=== PATIENT | female | born 1995 | race Two or more races ===

== ENCOUNTER 2023-04-21 12:05 | Emergency (ER) | payer MEDICAID, OTHER, SELFPAY ==
--- NOTE | ~2023-04-21 | XR_ITS ---
EXAMINATION: XR chest 2V CLINICAL INFORMATION: Chest pain COMPARISON: No prior chest x-ray available in our system for comparison at the time of this dictation. TECHNIQUE: XR chest 2V, 2 Views Lungs and Micaela: Both lungs are clear. Pleura: Normal. Costophrenic angles are sharp. No pneumothorax. Heart: The heart is normal in size. Mediastinum: The mediastinum is within normal limits.. Bones: Skeletal structures included are normal for patient's age. XR/XR chest 2V IMPRESSION: No radiographic evidence of acute cardiopulmonary disease.
--- NOTE | 2023-04-21 12:23 | ED.GENADULT ---
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 Took home COVID test which was positive. Related Data Allergies Allergy/AdvReac Type Severity Reaction Status Date / Time No Known Allergies Allergy Verified 04/21/23 12:26 Review of Systems Review of Systems: Yes all other systems are reviewed and are negative Constitutional: Constitutional: Reports no additional constitutional complaints, Denies body ache(s), Denies chills, Denies fever(s), Denies headache(s) and Denies weakness Eyes: Eyes: Reports no additional eye complaints and Denies change in vision ENT: Reports system reviewed and no additional complaints, except as documented, Denies dizziness, Denies headache(s), Reports nasal congestion, Denies nasal discharge and Denies neck pain Cardiovascular: Cardiovascular: Reports no additional cardiovascular complaints, Reports chest pain, Denies leg edema and Reports dyspnea Respiratory: Respiratory: Reports no additional respiratory complaints, Reports cough and Reports dyspnea Gastrointestinal: Gastrointestinal: Reports no additional gastrointestinal complaints, Denies abdominal pain, Denies diarrhea, Denies nausea and Denies vomiting Genitourinary: Genitourinary: Reports no additional female genitourinary complaints and Denies urinary incontinence Musculoskeletal: Musculoskeletal: Reports no additional musculoskeletal complaints, Denies back pain, Denies arthralgias, Denies joint swelling, Denies neck pain, Denies numbness and Denies tingling Integumentary/Breasts: Skin/Breast: Reports system reviewed and no additional complaints, except as docu and Denies rash Neurologic: Reports system reviewed and no additional complaints, except as documented, Denies Abnormal speech present, Denies dizziness, Denies headache(s), Denies numbness, Denies tingling and Denies weakness PMFSH Past Medical History Attestation statement: The following information was validated with the patient. Source: old records reviewed and nursing notes reviewed Medical History No known health problems Social History Social History Smoked in Last 30 Days: No Use of substances other than those prescribed or required for medical reasons: No Advance Directives: No Physical Exam ED Vital Signs: Vital Signs - 24 hr 04/21/23 12:26 04/21/23 13:23 Temperature 99.6 F Pulse Rate 109 H Respiratory Rate 18 Blood Pressure 151/76 H Pulse Oximetry 97 99 Oxygen Delivery Method Room Air Room Air BMI result Body Mass Index 30.7 Const General: cooperative, healthy appearing, comfortable and no acute distress Orientation/consciousness: patient oriented x3 Limitations: no limitations HENMT Head: Yes normal to inspection Ears: hearing grossly normal bilaterally and TM's normal bilaterally General nose exam: Normal external nose present Face and sinus: Yes normal facial exam Mouth: Normal oral and palatal mucosa present Throat: Yes posterior oropharynx normal, Yes tonsils normal and Yes uvula midline Eyes General: appearance normal, both eyes and all related structures Pupils: Equal, round and reactive pupils present Neck Neck: Yes normal visual inspection, Yes full ROM, Yes no lymphadenopathy and Yes no meningeal signs Chest Chest palpation & inspection: normal inspection of the chest Resp Effort & Inspection: normal respiratory effort Auscultation: clear to auscultation bilaterally Cardio Rate: regular rate Rhythm: regular rhythm Peripheral pulses: Peripheral pulses 2+ throughout GI Inspection: Yes normal to inspection Palpation (GI): Soft to palpation and nontender Auscultation: normal bowel sounds Back/Spine/Pelvis Thoracic/Lumbar Spine: thoracic and lumbar spine normal to inspection Skin General skin exam: no rashes or lesions noted Neuro General: patient oriented x3, no meningeal signs, no focal motor deficits and normal sensation to monofilament Cranial nerves: Yes Equal, round and reactive pupils present Cognition (Neuro): normal cognition Speech: No Abnormal speech present Gait exam (Neuro): Normal gait present Motor exam (neuro): 5/5 motor strength present throughout Extrem General: Yes normal to inspection, Yes no pedal edema and Yes no calf tenderness Course Course Course Narrative: This is an RME: Additional HPI, ROS, PE not included below will be deferred to primary provider. This is a 28-year-old female presenting to the emergency department with complaints of fever, cough, sore throat, chest pain since yesterday. She took a COVID test last night and was positive. Last dose of Tylenol was last night.She is tachycardic at 109. Tenderness to anterior chest wall. Plan: Chest x-ray, EKG, further evaluation Reevaluation(s) Reevaluation #1: COVID screen is positive. Chest x-ray shows no acute finding. EKG is nonischemic. Reviewed supportive care at home. Reviewed worrisome signs and symptoms of when to return to the emergency room. Comfortable plan for discharge home Medical Decision Making Medical Decision Making [facility] Narrative: 28-year-old female previously healthy here with complaints of cough, congestion, sore throat, subjective fevers, chest tightness, difficulty breathing since last night.? Took home COVID test which was positive.? Exam is benign. Vitals are stable. Will review strep, COVID/flu testing from triage as well as EKG and chest x-ray Differential Diagnosis Differential Diagnoses: The differential diagnosis associated with the presentation includes HPI is atypical for ACS, myocarditis, pericarditis, PE Admission/Observation Consideration of admission/observation: Escalation of care including admission/observation considered No hypoxia or tachypnea, not requiring supplemental oxygen. No need for admission Lab Data [facility] Lab Attestation statement: I reviewed the patient's lab results. COVID screen positive Labs: Lab Results 04/21/23 Range/Units 12:38 Influenza Type A (PCR) NEGATIVE (Negative) Influenza Type B (PCR) NEGATIVE (Negative) RSV RNA Qual (PCR) NEGATIVE (Negative) SARS-CoV-2 RNA (RT-PCR) POSITIVE A (Negative) Independent Interpretation I performed an independent interpretation of an: EKG and Plain X-Ray Interpretation: I independently reviewed the EKG which showsST 112, normal TX, normal QRS, normal QT Radiology Impression Discussion of test interpretation with radiology: I have reviewed the radiologist's reading. Radiologist Impression: [address] [address] XRay Report Signed Patient: Qiana Rebolledo MR#: [id number] : 1995 Acct:[id number] Age/Sex: 28 / F ADM Date: 04/21/23 Loc: .ED Attending Dr: Ordering Physician: Lis Bernstein Date of Service: 04/21/23 Procedure(s): XR chest 2V Accession Number(s): [id number] cc: Lis Bernstein; Physician,Unknown ~ EXAMINATION: XR chest 2V CLINICAL INFORMATION: Chest pain COMPARISON: No prior chest x-ray available in our system for comparison at the time of this dictation. TECHNIQUE: XR chest 2V, 2 Views Lungs and Micaela: Both lungs are clear. Pleura: Normal. Costophrenic angles are sharp. No pneumothorax. Heart: The heart is normal in size. Mediastinum: The mediastinum is within normal limits.. Bones: Skeletal structures included are normal for patient's age. XR/XR chest 2V IMPRESSION: No radiographic evidence of acute cardiopulmonary disease. Prescription Management I considered prescription management with: Antiviral and Antibiotic Discharge Plan Discharge Clinical Impression: COVID-19 Patient Disposition: Home, Self-Care Instructions: COVID-19 (Coronavirus Disease 2019) (ED) Additional Instructions: Motrin or Tylenol for pain or fever Increase fluids, rest Return for worsening symptoms Please quarantine for 5 days and mask up for additional 5 days Motrin o Tylenol para el dolor o la fiebre Aumentar l?quidos, descansar. Regresar si los s?ntomas empeoran Por favor, p?ngase en cuarentena sara 5 d?as y use mascarilla sara 5 d?as adicionales. Referrals: Physician,Unknown J [Primary Care Provider] - 1 week Print Language: Bhutanese
[2023-04-21 12:26] VITALS: BP 151/76; PULSE 109; RESP 18; TEMP 37.6; O2SAT 97; BMI 30.7
--- NOTE | 2023-04-21 12:29 | ECG_ITS ---
Test Reason : cp Blood Pressure : / mmHG Vent. Rate : 112 BPM Atrial Rate : 112 BPM P-R Int : 132 ms QRS Dur : 074 ms QT Int : 338 ms P-R-T Axes : 050 086 023 degrees QTc Int : 461 ms Sinus tachycardia RSR' or QR pattern in V1 suggests right ventricular conduction delay Nonspecific T wave abnormality Abnormal ECG No previous ECGs available Referred By: Lis Bernstein Electronically Signed By:FELICITA PIERCE MD
[2023-04-21 13:23] VITALS: O2SAT 99
[2023-04-21 13:26] VITALS: PULSE 102
[2023-04-21 13:59] LABS: Influenza A PCR NEGATIVE (Negative); Influenza B PCR NEGATIVE (Negative); Resp Syncy Virus RNA Qual PCR NEGATIVE (Negative); SARS COV2 PCR INHOUSE POSITIVE (Negative)
== END 2023-04-21 14:37 | disposition home or self-care (01) ==
PROVIDERS: Physician Assistant Medical; Emergency Provider Emergency Medicine
DX: U07.1 COVID-19 (principal)
CPT/HCPCS: 0241U; 71046; 93005; 99283; 99285

== ENCOUNTER 2023-07-03 17:33 | Emergency (ER) | payer MEDICAID, OTHER, SELFPAY ==
--- NOTE | 2023-07-03 | ECG_ITS ---
Test Reason : CP Blood Pressure : / mmHG Vent. Rate : 094 BPM Atrial Rate : 094 BPM P-R Int : 144 ms QRS Dur : 078 ms QT Int : 348 ms P-R-T Axes : 039 047 027 degrees QTc Int : 435 ms Normal sinus rhythm Normal ECG When compared with ECG of 21-APR-2023 12:32, No significant change was found Referred By: Generic ED Physician Electronically Signed By:WOJCIECH YODER MD
--- NOTE | ~2023-07-03 | XR_ITS ---
EXAMINATION: XR CHEST CLINICAL INFORMATION: Pain COMPARISON: 04/21/2023 TECHNIQUE: Frontal view of the chest was obtained. FINDINGS: The lungs are clear with no focal consolidation. No evidence of pneumothorax, pulmonary edema, or pleural effusions. The cardiomediastinal silhouette is unremarkable. No acute osseous findings. XR/XR chest 1V IMPRESSION: No acute cardiopulmonary findings.
[2023-07-03 17:49] VITALS: BP 126/79; PULSE 98; RESP 16; TEMP 36.3; O2SAT 98; BMI 27.9
[2023-07-04 00:56] VITALS: BP 120/56; PULSE 85; RESP 17; TEMP 36.8; O2SAT 99
--- NOTE | 2023-07-04 01:08 | ED.CHESTPAIN ---
HPI - Chest Pain General Chief Complaint: Chest Pain Stated Complaint: chest pain, change of meds t-1 Time Seen by Provider: 07/04/23 00:59 Source: patient Mode of arrival: ambulatory Limitations: no limitations History of Present Illness HPI narrative: 28 yo female with PMH of depression notes just recently increased her escitalopram dose from 5mg to 10mg last night and started to have L sided chest pain that hurts to move. No travel, OCPs, URI. She has not taken anything for it. It will not go away. MD complaint: chest pain Onset (ago): day(s) (24 hours ago) Timing of current episode: constant Prior episodes: No Onset: during rest Pain location: left chest Pain radiation: none and left arm Severity: moderate Quality: tightness Relieving factors: nothing Exacerbating factors: palpation and movement Context: other (states started after medication) Treatment prior to arrival: none Related Data Allergies Allergy/AdvReac Type Severity Reaction Status Date / Time No Known Allergies Allergy Verified 07/03/23 17:48 Review of Systems Review of Systems: Constitutional : No Weight loss, No Fever, No Chills ENT/Mouth : No sore throat, No Rhinorrhea Eyes: No Eye Pain, No Swelling Cardiovascular : pos Chest Pain, no SOB, no Dyspnea on Exertion, No Orthopnea, No Edema, No Palpitations Respiratory : No Cough, No Sputum Gastrointestinal : no Nausea, No Vomiting, No Diarrhea, No abdominal Pain, No Hematochezia, No Melena Genitourinary : No Dysuria, No Urinary Frequency Musculoskeletal : No joint pain, No Myalgias, No Joint Swelling Skin : No Skin Lesions, No rash Neuro : No Weakness, No Numbness, No Dizziness, No Headache Psych : No Anxiety/Panic, No Depression All other systems reviewed and are negative [facility] Past Medical History Attestation statement: The following information was validated with the patient. Source: old records reviewed Medical History No known health problems Social History Social History (Updated 07/04/23 @ 01:08 by Kristi Luna DO) Patient Tobacco Use Status: Never used Tobacco Advance Directives: No Advance Directives Information Provided: Yes Physical Exam Vital Signs: Vital Signs: Last Vital Signs Temp 98.2 F 07/04/23 00:56 Pulse 85 07/04/23 00:56 Resp 17 07/04/23 00:56 BP 120/56 L 07/04/23 00:56 Pulse Ox 99 07/04/23 00:56 O2 Del Method Room Air 07/04/23 00:56 BMI result Body Mass Index 27.9 Appearance: Alert. Oriented X3. No acute distress. Eyes: Pupils equal, round and reactive to light. ENT: Pharynx normal. Neck: Normal inspection. Neck supple. CVS: Normal heart rate and rhythm. Pulses normal. chest: ttp along L lateral chest wall reproduces pain distal arm NV intact I do not see any swelling in L hand Respiratory: No respiratory distress. Breath sounds normal. Abdomen: Soft and nontender. Skin: Skin warm and dry. Normal skin color. Normal skin turgor. Extremities: No lower extremity edema. No calf ttp Neuro: Oriented X 3. No motor deficit. No sensory deficit. Medications Administered Discontinued Medications Generic Name Dose Route Start Last Admin Trade Name Freq PRN Reason Stop Dose Admin Acetaminophen 975 mg 07/04/23 01:13 07/04/23 02:21 Acetaminophen 325 Mg Tablet PO 07/04/23 01:14 975 mg ONCE ONE Administration Medical Decision Making Medical Decision Making MDM Narrative: 28 yo female with PMH of depression here with c/o chest pain after taking 10mg of escitalopram - PERC negative, no ACS risk factors it is reproduceable, will obtain EKG, basic labs and trop x 1. Differential Diagnosis Differential Diagnoses: The differential diagnosis associated with the presentation includes chest wall pain, med reaction Admission/Observation Consideration of admission/observation: Escalation of care including admission/observation considered work up negative stable for DC Lab Data 07/04/23 01:23 Labs: Lab Results 07/04/23 Range/Units 01:23 WBC 9.5 (4.8-10.8) X10*3/uL RBC 4.36 (4.20-5.50) X10*6/uL Hgb 10.8 L (12.0-16.0) g/dl Hct 34.1 L (37.0-47.0) % MCV 78.2 L (80.0-98.0) fL MCH 24.8 L (27.0-33.0) pg MCHC 31.7 (31.0-35.0) g/dl RDW 14.9 (11.0-16.0) % Plt Count 284 (160-400) X10*3/uL MPV 9.5 (9.4-12.3) fL Absolute Nucleated RBC 0.000 (0.0-0.012) X10*3/uL Nucleated RBC % (auto) 0.0 (0.0-0.2) /100WBC Troponin I High Sens < 2.7 (<3.5-17.0) ng/L Independent Interpretation I performed an independent interpretation of an: EKG and Plain X-Ray (normal) Interpretation: Rate: 94 Rhythm: NSR [place]: normal Normal P waves. Normal SHAWN. Normal QRS complex. ST T wave : normal no REX, inverted t waves V1 and V2 qTC: 435 prior studies: no acute ischemia The study has been interpreted contemporaneously by me. . Radiology Impression Discussion of test interpretation with radiology: I have reviewed the radiologist's reading. Discharge Plan Discharge Clinical Impression: Atypical chest pain Patient Disposition: Home, Self-Care Instructions: Chest Pain (ED) Additional Instructions: EKG, chest xray and heart tests are reassuring. you were mildly anemic. please return for worsening symptoms or concerns. talk to your doctor about your medication dose do not just stop it. El electrocardiograma, la radiograf?a de t?rax y las pruebas card?acas son tranquilizadores. Estabas levemente an?casandra. Por favor regrese si sha s?ntomas o inquietudes empeoran. Hable con espinosa m?dico sobre la dosis de espinosa medicamento, no simplemente suspenda el tratamiento. Stand Alone Forms: Work/School Release Print Language: [place]
[2023-07-04 01:29] LABS: Hematocrit 34.1 % (37.0-47.0); Hemoglobin 10.8 g/dl (12.0-16.0); Mean Corpuscular HGB Conc 31.7 g/dl (31.0-35.0); Mean Corpuscular Hemoglobin 24.8 pg (27.0-33.0); Mean Corpuscular Volume 78.2 fL (80.0-98.0); Mean Platelet Volume 9.5 fL (9.4-12.3); Platelet Count 284 X10*3/uL (160-400); Red Blood Count 4.36 X10*6/uL (4.20-5.50); Red Cell Distribution Width 14.9 % (11.0-16.0); White Blood Count 9.5 X10*3/uL (4.8-10.8)
[2023-07-04 01:59] LABS: Troponin-I High Sensitivity < 2.7 ng/L (<3.5-17.0)
[2023-07-04] MEDS: Acetaminophen 325 MG TABLET 975 MG PO (02:21)
== END 2023-07-04 02:42 | disposition home or self-care (01) ==
PROVIDERS: Emergency Provider Emergency Medicine
DX: R07.89 Other chest pain (principal)
CPT/HCPCS: 36415; 71045; 84484; 85027; 93005; 99283; 99285

== ENCOUNTER → 2023-07-03 17:55 | Outpatient (BNV) | payer SELFPAY | PROVIDERS: Emergency Provider Emergency Medicine; Visit Provider Internal Medicine Cardiovascular Disease | DX: R07.9 Chest pain, unspecified (principal) | CPT/HCPCS: 93010 ==

== ENCOUNTER 2024-05-28 13:27 | Emergency (ER) | payer MEDICAID, OTHER, SELFPAY ==
--- NOTE | ~2024-05-28 | CT_ITS ---
EXAMINATION: CT ABDOMEN AND PELVIS WITHOUT CONTRAST CLINICAL INFORMATION: Abdominal pain. Blood in urine. COMPARISON: None available. TECHNIQUE: Multidetector volumetric imaging was performed from the superior aspect of the liver through the pubic symphysis. Sagittal and coronal reformatted images were obtained on the technologist's workstation. This CT examination was performed using dose optimization techniques as appropriate, variously including the following: *Automated exposure control *Adjustment of mA and/or kV according to patient size (this includes techniques or standardized protocols for targeted exams where dose is matched to indication/reason for exam; i.e. extremities or head) *Use of iterative reconstruction technique DLP: 571 mGy-cm FINDINGS: LUNG BASES: The lung bases appear clear, with no evidence of inflammation or nodules. LIVER, GALLBLADDER, AND BILIARY TREE: Fatty infiltration of liver. The liver appears unremarkable in size and shape. No focal hepatic lesion or biliary ductal dilatation is appreciated. Unremarkable appearance of the gallbladder. PANCREAS: Unremarkable SPLEEN: Unremarkable ADRENAL GLANDS: Unremarkable KIDNEYS AND URETERS: The kidneys appear unremarkable in size, shape, and attenuation. No hydronephrosis, hydroureter, or calculi seen. BLADDER: Poorly distended, therefore suboptimally evaluated. Grossly unremarkable. GASTROINTESTINAL TRACT: The small and large bowel appear unremarkable. No diverticulosis. Normal-appearing distal ileum and vermiform appendix. ABDOMINAL WALL: No significant hernia is appreciated. LYMPH NODES: No evidence of adenopathy by size criteria. VASCULAR: Unremarkable PELVIC VISCERA: IUD. Approximately 4.2 cm, smooth, round, homogeneous left ovarian structure demonstrating Hounsfield unit density of approximately 25, almost certainly benign. No further dedicated follow-up imaging as indicated. OSSEOUS STRUCTURES: Unremarkable CT/CT abdomen pelvis wo IV con IMPRESSION: No particularly suspicious radiographic finding, as above. Electronically signed by: Rk Lockwood MD 05/28/2024 03:25 PM [facility] [place]
--- NOTE | ~2024-05-28 | US_ITS ---
EXAMINATION: US PELVIS CLINICAL INFORMATION: Lower abdominal discomfort COMPARISON: CT abdomen and pelvis 05/28/2024: Approximately 4.2 cm, smooth, round, homogeneous left ovarian structure demonstrating Hounsfield unit density of approximately 25, almost certainly benign. No further dedicated follow-up imaging as indicated. TECHNIQUE: Ultrasound of the pelvis is performed using both transabdominal and transvaginal transducers along with Doppler. Transvaginal imaging is performed due to inadequate visualization transabdominally. FINDINGS: Uterus: The uterus is anteverted and measures 9.0 x 4.0 x 4.7 cm. The double wall endometrial thickness is 3 mm. A low-lying IUD is present in the lower uterine segment with its tip 4 cm below the top of the endometrial cavity. Small amount of fluid is present in the endocervix. The uterus is smooth in contour and has normal myometrial echogenicity. No visible fibroid. Adnexa: Both ovaries are visualized. There is normal color flow to the adnexa. There is no ovarian torsion. There is no pelvic ascites or fluid collection. Right ovary measures 3.0 x 1.9 x 2.2 cm for a volume of 6.6 cc There is a 1.4 cm corpus luteal cyst Left ovary measures 5.6 x 3.9 x 4.1 cm for a volume of 47 cc which includes a 4.8 x 2.9 x 3.4 cm benign simple cyst. This is the benign cyst seen on the CT scan earlier today for which no follow-up was recommended. US/US pelvic and transvaginal IMPRESSION: 1. Low-lying IUD. 2. 4.8 cm benign left ovarian cyst. No follow-up is needed. Electronically signed by: Luciano Baez MD 05/28/2024 06:29 PM [facility]
--- NOTE | ~2024-05-28 | US_ITS ---
EXAMINATION: US PELVIS CLINICAL INFORMATION: Lower abdominal discomfort COMPARISON: CT abdomen and pelvis 05/28/2024: Approximately 4.2 cm, smooth, round, homogeneous left ovarian structure demonstrating Hounsfield unit density of approximately 25, almost certainly benign. No further dedicated follow-up imaging as indicated. TECHNIQUE: Ultrasound of the pelvis is performed using both transabdominal and transvaginal transducers along with Doppler. Transvaginal imaging is performed due to inadequate visualization transabdominally. FINDINGS: Uterus: The uterus is anteverted and measures 9.0 x 4.0 x 4.7 cm. The double wall endometrial thickness is 3 mm. A low-lying IUD is present in the lower uterine segment with its tip 4 cm below the top of the endometrial cavity. Small amount of fluid is present in the endocervix. The uterus is smooth in contour and has normal myometrial echogenicity. No visible fibroid. Adnexa: Both ovaries are visualized. There is normal color flow to the adnexa. There is no ovarian torsion. There is no pelvic ascites or fluid collection. Right ovary measures 3.0 x 1.9 x 2.2 cm for a volume of 6.6 cc There is a 1.4 cm corpus luteal cyst Left ovary measures 5.6 x 3.9 x 4.1 cm for a volume of 47 cc which includes a 4.8 x 2.9 x 3.4 cm benign simple cyst. This is the benign cyst seen on the CT scan earlier today for which no follow-up was recommended. US/US pelvic ovarian doppler IMPRESSION: 1. Low-lying IUD. 2. 4.8 cm benign left ovarian cyst. No follow-up is needed. Electronically signed by: Luciano Baez MD 05/28/2024 06:29 PM [facility] [place]
[2024-05-28 13:31] VITALS: BP 124/80; PULSE 82; RESP 16; TEMP 36.4; O2SAT 99; BMI 26.9
--- NOTE | 2024-05-28 13:40 | ED_ITS ---
HPI - General Adult General Chief complaint: Urogenital-Female Stated complaint: issue with private Time Seen by Provider: 05/28/24 14:25 Source: patient Mode of arrival: ambulatory Limitations: no limitations History of Present Illness ED Provider: GEORGE Bauer HPI narrative: This is a 29-year-old female denies past medical history presenting with swollen labia reports it is swollen, itchy and bleeding, also reports she has noted some blood in her urine. This has been going on for the last few days. She reports when she pees it stings. Also reports it stings when she has a bowel movement. She reports she is sexually active and worse protection no concerns for STDs or STIs last sexually active about a week ago with protection. Patient reports her last menstrual period was about 2 weeks ago. Vague complaints of diffuse abdominal discomfort. Denies fevers, chills, nausea, vomiting, headache, vision changes, dizziness, weakness. Related Data Previous Rx's ?Medication ?Instructions ?Recorded doxycycline hyclate 100 mg capsule 100 mg PO BID 10 days #20 caps 05/28/24 metronidazole 500 mg tablet 500 mg PO BID 7 days #14 tabs 05/28/24 valacyclovir 1 gram tablet 1,000 mg PO BID 10 days #20 tabs 05/28/24 (Valtrex) Allergies Allergy/AdvReac Type Severity Reaction Status Date / Time No Known Allergies Allergy Verified 05/28/24 13:37 Review of Systems 2 Review of Systems: Yes all other systems are reviewed and are negative [facility] Past Medical History Attestation statement: The following information was validated with the patient. Source: old records reviewed and nursing notes reviewed Medical History No known health problems Social History Social History Alcohol intake: never Patient Tobacco Use Status: Never used Tobacco Advance Directives: No Advance Directives Information Provided: No Do you have a plan to hurt others: No Plan Physical Exam ED Vital Signs: Vital Signs - 24 hr 05/28/24 13:31 05/28/24 16:44 Temperature 97.6 F 97.6 F Pulse Rate 82 87 Respiratory Rate 16 15 Blood Pressure 124/80 113/64 Pulse Oximetry 99 97 Oxygen Delivery Method Room Air Room Air BMI result Body Mass Index 26.9 vss Appearance: Alert.? Oriented X3.? No acute distress.? Head: Normocephalic, atraumatic, no step-offs or deformities Eyes: Pupils equal, round and reactive to light.? Neck: Normal inspection.? Neck supple.? CVS: Normal heart rate and rhythm.? Pulses normal.? Respiratory: No respiratory distress.? Breath sounds normal.? Abdomen: Soft and mild diffuse lower abdominal discomfort Skin: Skin warm and dry.? Normal skin color.? Normal skin turgor.? Extremities: No lower extremity edema.? No calf ttp. 5/5 strength to bilateral upper and lower extremities Back: No midline tenderness, no C-spine tenderness, full range of motion, no CVA tenderness bilaterally Neuro: Oriented X 3.? No motor deficit.? No sensory deficit. CN 2-12 intact Sensitive exam: Tila THOMAS bedside erythema and edema with ulcers to the left labia. Normal right labia. No other lesions lumps or masses noted. Scant amount of dried blood noted externally and internally. Course Course Course Narrative: RmE: 29-year-old female presents to ED for vaginal bleeding, bloody urination, abdominal pain, and vaginal labia feeling swollen. Labs UA ordered. Reevaluation(s) Reevaluation #1: Although patient states she is not concerned for STDs I did have a discussion with her about prophylactic treatment for sexually transmitted infections if interested. She would like to be prophylactically treated just in case. I will treat her for herpes as well. Patient agrees to prophylactic treatment for gonorrhea, chlamydia and trichomonas. 500mg IM ceftriaxone has been given here and scripts for doxycycline 100 mg po BID X 7 days and metronidazole 500 mg po BID X 7 days have been given to the patient. Educated on safe sex practices, full pannel STD testing and speaking to? partners on possible STD. Time: 14:39 Reevaluation #2: CBC unremarkable. Chemistry no acute findings needing intervention. Patient's transaminases mildly elevated this could be her baseline unclear. On exam only mild discomfort with palpation of lower abdomen. Troponin negative. Beta hCG negative. Lipase negative. CT abdomen and pelvis, ultrasound pending. Time: 15:01 Reevaluation #3: Swabs pending Time: 15:02 Additional Reevaluation(s): 1545 Patient positive for Trichomonas negative for yeast. Herpes culture still pending. Gonorrhea and chlamydia still pending. Abdominal CT showing a 4.2 cm smooth round homogeneous left ovarian structure likely benign, further evaluation with ultrasound will be obtained. Ultrasound still pending. Once ultrasound results patient will likely be discharged home Medications Administered Discontinued Medications Generic Name Dose Route Start Last Admin Trade Name Lucien PRN Reason Stop Dose Admin Ceftriaxone Sodium 500 mg 05/28/24 14:38 05/28/24 14:53 Ceftriaxone Sodium 500 Mg Vial IM 05/28/24 14:39 500 mg ONCE ONE Administration Doxycycline Monohydrate 100 mg 05/28/24 14:38 05/28/24 14:53 Doxycycline Monohydrate 100 Mg Capsule PO 05/28/24 14:39 100 mg ONCE ONE Administration Metronidazole 500 mg 05/28/24 14:38 05/28/24 14:53 Metronidazole 500 Mg Tablet PO 05/28/24 14:39 500 mg ONCE ONE Administration Medical Decision Making Medical Decision Making [facility] Narrative: 142 29-year-old female presents with swollen labia, bleeding from itching her labia, burning on urination discomfort with bowel movements, blood in urine ongoing for the past few days worsening. No concerns for STD/STI as per patient. Unlikely that she is she tells me. Physical exam with erythema and edema with ulcers to the left labia. Normal internal exam normal right labia. No other masses, lumps or lesions noted. Scant amount of dried blood noted externally and internally. Lower abdominal discomfort History and physical exam concerning for UTI versus cystitis versus STD/STIs versus yeast infection most likely herpes. Unlikely metabolic derangements. Unlikely acute abdomen, torsion, ovarian cyst, ectopic . Plan labs, imaging, swabs. Differential Diagnosis Differential Diagnoses: The differential diagnosis associated with the presentation includes (History and physical exam concerning for UTI versus cystitis versus STD/STIs versus yeast infection most likely herpes. Unlikely metabolic derangements. Unlikely acute abdomen, torsion, ovarian cyst, ectopic .) Admission/Observation Consideration of admission/observation: Escalation of care including admission/observation considered ([email or web address] ) Lab Data [facility] Lab Attestation statement: I reviewed the patient's lab results. 05/28/24 13:54 05/28/24 13:54 Labs: Lab Results 05/28/24 Range/Units 13:54 WBC 7.9 (4.8-10.8) X10*3/uL RBC 4.49 (4.20-5.50) X10*6/uL Hgb 12.0 (12.0-16.0) g/dl Hct 36.8 L (37.0-47.0) % MCV 82.0 (80.0-98.0) fL MCH 26.7 L (27.0-33.0) pg MCHC 32.6 (31.0-35.0) g/dl RDW 14.1 (11.0-16.0) % Plt Count 282 (160-400) X10*3/uL MPV 10.2 (9.4-12.3) fL Immature Gran % (Auto) 0.1 (0.0-0.4) % Neut % (Auto) 61.3 (45-73) % Lymph % (Auto) 32.6 (20-40) % [place] % (Auto) 4.2 (2-11) % Eos % (Auto) 1.3 (0-4) % Baso % (Auto) 0.5 (0-2) % Lymph # (Auto) 2.6 (1.2-4.9) X10*3/uL [place] # (Auto) 0.3 (0.1-1.2) X10*3/uL Eos # (Auto) 0.1 (0.0-0.4) X10*3/uL Baso # (Auto) 0.0 (0.0-0.2) X10*3/uL Abs Immat Gran (auto) 0.01 (0.00-0.03) X10*3/uL Absolute Neuts (auto) 4.8 (2.0-8.3) x10*3/uL Absolute Nucleated RBC 0.000 (0.0-0.012) X10*3/uL Nucleated RBC % (auto) 0.0 (0.0-0.2) /100WBC Sodium 141 (135-145) mmol/L Potassium 3.8 (3.3-5.1) mmol/L Chloride 109 H (96-108) mmol/L Carbon Dioxide 23 (22-29) mmol/L Anion Gap 13 (12-20) BUN 9 (9-16) mg/dL Creatinine 0.64 (0.5-1.4) mg/dL Estim Creat Clear Calc 128.8 Estimated GFR > 60 Random Glucose 99 (60-115) mg/dL Calcium 9.0 (8.4-10.2) mg/dL Total Bilirubin 0.3 (0.0-1.0) mg/dL AST 40 H (5-31) U/L ALT 61 H (0-31) U/L Alkaline Phosphatase 83 (39-117) U/L Total Protein 7.8 (6.5-8.0) g/dL Albumin 4.3 (3.5-5.0) g/dL Lipase 14 (8-78) U/L Beta HCG, Quant < 2 mIU/mL Urine Color Dark Yellow Urine Appearance Cloudy Urine pH 5.5 (5.0-9.0) Ur Specific [place] 1.020 (1.005-1.025) Urine Protein Trace (Neg-Trace) mg/dL Urine Glucose (UA) Negative (Negative) mg/dL Urine Ketones Negative (Negative) mg/dL Urine Blood Large (3+) H (Negative) Urine Nitrite Negative (Negative) Ur Leukocyte Esterase Moderate (2+) H (Negative) Urine RBC >20 H (0-2) /HPF Urine WBC >50 H (0-5) /HPF Ur Squamous Epith Cells 3-5 (0-2) /HPF Urine Bacteria None Seen (None Seen) Hyaline Casts 0-2 (0-2) /LPF Urine Test NEGATIVE (NEGATIVE) Chlam trachomat DNA PCR NOT DETECTED (Not Detect.) N.gonorrhoeae DNA (PCR) NOT DETECTED (Not Detect.) Independent Interpretation I performed an independent interpretation of an: Ultrasound and CT Scan (FINDINGS: LUNG BASES: The lung bases appear clear, with no evidence of inflammation or nodules. LIVER, GALLBLADDER, AND BILIARY TREE: Fatty infiltration of liver. The liver appears unremarkable in size and shape. No focal hepatic lesion or biliary ductal dilatation is appreciated. Unremarkab) Radiology Impression Discussion of test interpretation with radiology: I have reviewed the radiologist's reading. External Record Review External record reviewed: Office record, Outpatient record, Prior outpatient labs and Prior outpatient radiology Chronic Conditions Patient?s care impacted by: Other (see hpi ) Critical Care Time Critical Care Time Critical Care Time: Yes Total Critical Care Time: 35 Attestation: I attest to this time spent taking care of the patient, obtaining history, physical, reviewing labs, imaging, treatment of patients condition +/- specialist/hospitalist consult Discharge Plan Discharge Clinical Impression: Genital labial ulcer, Dysuria, DUB (dysfunctional uterine bleeding), Trichomoniasis Patient Disposition: Home, Self-Care Instructions: Trichomoniasis (ED), Sexually Transmitted Diseases (ED), Dysfunctional Uterine Bleeding (ED) Additional Instructions: Take your medications as prescribed. If you were prescribed antibiotics today, it is important that you take your medication to their entirety, do not skip any doses, do not finish them early. Follow-up with your primary care provider this week. Return to the emergency department with new or worsening symptoms. Such as fevers, chills, chest pain, shortness of breath, nausea, vomiting, dizziness, headache, vision changes, lethargy In case of emergency call 911 You were treated here today with ceftriaxone, a medication that treats gonorrhea. I have sent to your pharmacy Metronidazole that covers trichomonas, and Doxycycline which covers for chlamydia. Please be reevaluated by a healthcare provider after completing your antibiotics. Do not stop them early, do not skip any doses. Until you are reevaluated by a health care provider please practice safe sex as disucussed. Please also have a conversation with your sexual partners.? I also advise you to obtain full panel STD testing to test for other STDs including HIV, Hepatitis B & C and syphilis with your PCP or a local clinic. Gonorrhea, chlamydia, bacterial vaginosis and herpes cultures are still pending. You will be called with results Return if your bleeding through more than 2 pads an hour. FINDINGS: Uterus: The uterus is anteverted and measures 9.0 x 4.0 x 4.7 cm. The double wall endometrial thickness is 3 mm. A low-lying IUD is present in the lower uterine segment with its tip 4 cm below the top of the endometrial cavity. Small amount of fluid is present in the endocervix. The uterus is smooth in contour and has normal myometrial echogenicity. No visible fibroid. Adnexa: Both ovaries are visualized. There is normal color flow to the adnexa. There is no ovarian torsion. There is no pelvic ascites or fluid collection. Right ovary measures 3.0 x 1.9 x 2.2 cm for a volume of 6.6 cc There is a 1.4 cm corpus luteal cyst Left ovary measures 5.6 x 3.9 x 4.1 cm for a volume of 47 cc which includes a 4.8 x 2.9 x 3.4 cm benign simple cyst. This is the benign cyst seen on the CT scan earlier today for which no follow-up was recommended. US/US pelvic ovarian doppler IMPRESSION: 1. Low-lying IUD. 2. 4.8 cm benign left ovarian cyst. No follow-up is needed. FINDINGS: LUNG BASES: The lung bases appear clear, with no evidence of inflammation or nodules. LIVER, GALLBLADDER, AND BILIARY TREE: Fatty infiltration of liver. The liver appears unremarkable in size and shape. No focal hepatic lesion or biliary ductal dilatation is appreciated. Unremarkable appearance of the gallbladder. PANCREAS: Unremarkable SPLEEN: Unremarkable ADRENAL GLANDS: Unremarkable KIDNEYS AND URETERS: The kidneys appear unremarkable in size, shape, and attenuation. No hydronephrosis, hydroureter, or calculi seen. BLADDER: Poorly distended, therefore suboptimally evaluated. Grossly unremarkable. GASTROINTESTINAL TRACT: The small and large bowel appear unremarkable. No diverticulosis. Normal-appearing distal ileum and vermiform appendix. ABDOMINAL WALL: No significant hernia is appreciated. LYMPH NODES: No evidence of adenopathy by size criteria. VASCULAR: Unremarkable PELVIC VISCERA: IUD. Approximately 4.2 cm, smooth, round, homogeneous left ovarian structure demonstrating Hounsfield unit density of approximately 25, almost certainly benign. No further dedicated follow-up imaging as indicated. OSSEOUS STRUCTURES: Unremarkable CT/CT abdomen pelvis wo IV con IMPRESSION: No particularly suspicious radiographic finding, as above. Prescriptions: New doxycycline hyclate 100 mg capsule 100 mg PO BID 10 Days Qty: 20 0RF metronidazole 500 mg tablet 500 mg PO BID 7 Days Qty: 14 0RF valacyclovir [Valtrex] 1 gram tablet 1,000 mg PO BID 10 Days Qty: 20 0RF Referrals: Physician,None [Primary Care Provider] - 2 days Stand Alone Forms: Work/School Release Print Language: Peruvian
[2024-05-28 14:02] LABS: MANUAL DIFF FLAG NO
[2024-05-28 14:07] LABS: Appearance Urine Cloudy; Bacteria Urine None Seen (None Seen); Basophils Percent Auto 0.5 % (0-2); Color Urine Dark Yellow; Eosinophils Absolute Auto 0.1 X10*3/uL (0.0-0.4); Eosinophils Percent Auto 1.3 % (0-4); Glucose Urine UA Negative (Negative); Hematocrit 36.8 % (37.0-47.0); Hyaline Casts Urine 0-2 /LPF (0-2); Imm Gran Abs Auto 0.01 X10*3/uL (0.00-0.03); Imm Gran Pct Auto 0.1 % (0.0-0.4); Leukocyte Esterase Urine Moderate (2+) (Negative); Lymphocytes Absolute Auto 2.6 X10*3/uL (1.2-4.9); Lymphocytes Percent Auto 32.6 % (20-40); Mean Corpuscular HGB Conc 32.6 g/dl (31.0-35.0); Mean Corpuscular Hemoglobin 26.7 pg (27.0-33.0); Mean Platelet Volume 10.2 fL (9.4-12.3); Monocytes Absolute Auto 0.3 X10*3/uL (0.1-1.2); Monocytes Percent Auto 4.2 % (2-11); Neutrophils Absolute Auto 4.8 x10*3/uL (2.0-8.3); Neutrophils Percent Auto 61.3 % (45-73); Nitrite Urine Negative (Negative); PH 5.5 (5.0-9.0); Platelet Count 282 X10*3/uL (160-400); RBC Urine >20 /HPF (0-2); Red Blood Count 4.49 X10*6/uL (4.20-5.50); Red Cell Distribution Width 14.1 % (11.0-16.0); UACC Culture Trigger YES; UMIC TRIGGER UACC YES; UPreg QC Valid YES; Urine Blood Large (3+) (Negative); Urine Ketones Negative (Negative); Urine Pregnancy NEGATIVE (NEGATIVE); Urine Protein Trace mg/dL (Neg-Trace); WBC Urine >50 /HPF (0-5); White Blood Count 7.9 X10*3/uL (4.8-10.8)
[2024-05-28 14:43] LABS: Alanine Aminotransferase 61 U/L (0-31); Albumin Level 4.3 g/dL (3.5-5.0); Alkaline Phosphatase 83 U/L (39-117); Anion Gap 13 (12-20); Aspartate Amino Transferase 40 U/L (5-31); Bilirubin Total 0.3 mg/dL (0.0-1.0); Blood Urea Nitrogen 9 mg/dL (9-16); Carbon Dioxide 23 mmol/L (22-29); Chloride 109 mmol/L (96-108); Creatinine Clr Calc Pharmacy 128.8; Estimated Glomerular Filt Rate > 60; Glucose Random 99 mg/dL (60-115); HCG Quantitative < 2 mIU/mL; Lipase 14 U/L (8-78); Potassium 3.8 mmol/L (3.3-5.1); Sodium 141 mmol/L (135-145); Total Protein 7.8 g/dL (6.5-8.0)
[2024-05-28] MEDS: Doxycycline Monohydrate 100 MG CAPSULE PO (14:53)
[2024-05-28] MEDS: metroNIDAZOLE 500 MG TABLET PO (14:53)
[2024-05-28] MEDS: cefTRIAXone sodium 500 MG VIAL IM (14:53)
[2024-05-28 15:34] LABS: CT PCR NOT DETECTED (Not Detect.); NG PCR NOT DETECTED (Not Detect.)
[2024-05-28 16:44] VITALS: BP 113/64; PULSE 87; RESP 15; TEMP 36.4; O2SAT 97
[2024-05-28 18:56] VITALS: BP 108/68; PULSE 71; RESP 14; O2SAT 97
[2024-05-28 19:16] VITALS: BP 108/68; PULSE 71; RESP 18; TEMP 36.4; O2SAT 97
[2024-05-28] MEDS: Ketorolac Tromethamine 15 MG/ML VIAL IM (19:18)
[2024-05-29 10:58] LABS: Bacterial Vaginosis PCR POSITIVE (Negative); Candida Group PCR NOT DETECTED (Not Detect); Candida glab krusei PCR NOT DETECTED (Not Detect); Trichomonas vaginalis PCR DETECTED (Not Detect)
== END 2024-05-28 19:17 | disposition home or self-care (01) ==
PROVIDERS: Physician Assistant; Emergency Provider Emergency Medicine
DX: N76.6 Ulceration of vulva (principal); R30.0 Dysuria; R10.2 Pelvic and perineal pain; Z79.899 Other long term (current) drug therapy; Z20.2 Contact with and (suspected) exposure to infections with a predominantly sexual mode of transmission
CPT/HCPCS: 0352U; 36415; 74176; 76830; 76856; 80053; 81001; 81025; 83690; 84702; 85025; 87086; 87255; 87491; 87591; 93975; 96372; 99284; J0696; J1885

== ENCOUNTER 2025-02-20 22:54 | Emergency (ER) | payer MEDICAID, OTHER, SELFPAY ==
--- NOTE | 2025-02-20 23:06 | ED.ABDPAIN ---
HPI - Abdominal Pain General Chief Complaint: Urogenital-Female Stated Complaint: abd pain +uti from home exam Time Seen by Provider: 02/21/25 03:34 Source: patient Limitations: language barrier History of Present Illness ED Provider: Maxine Navarro PA-C HPI narrative: 30-year-old female presents with dysuria x3 days. Associated suprapubic discomfort, discolored urine and low back pain. Denies nausea vomiting fever. Related Data Previous Rx's ?Medication ?Instructions ?Recorded doxycycline hyclate 100 mg capsule 100 mg PO BID 10 days #20 caps 05/28/24 metronidazole 500 mg tablet 500 mg PO BID 7 days #14 tabs 05/28/24 valacyclovir 1 gram tablet 1,000 mg PO BID 10 days #20 tabs 05/28/24 (Valtrex) cephalexin 500 mg capsule 500 mg PO Q12H #13 caps 02/21/25 phenazopyridine 200 mg tablet 200 mg PO TID PRN pain #10 tabs 02/21/25 (Pyridium) Allergies Allergy/AdvReac Type Severity Reaction Status Date / Time No Known Allergies Allergy Verified 02/20/25 23:11 Review of Systems Review of Systems Yes all other systems are reviewed and are negative Constitutional: Denies fatigue and Denies fever(s) Cardiovascular: Denies chest pain and Denies dyspnea Respiratory: Denies dyspnea Gastrointestinal: Reports abdominal pain, Denies nausea and Denies vomiting Genitourinary: Reports dysuria Musculoskeletal: Reports back pain Endocrine: Denies fatigue [facility] Past Medical History Attestation statement: The following information was validated with the patient. Medical History No known health problems Social History Social History Alcohol intake: never Patient Tobacco Use Status: Never used Tobacco Advance Directives: No Advance Directives Information Provided: Yes Do you have a plan to hurt others: No Plan Physical Exam ED Vital Signs: Vital Signs - 24 hr 02/20/25 23:09 02/21/25 03:12 Temperature 97.3 F 97.8 F Pulse Rate 79 81 Respiratory Rate 16 16 Blood Pressure 133/76 129/59 L Pulse Oximetry 98 93 Oxygen Delivery Method Room Air Room Air BMI result Body Mass Index 33.7 Const Other: Alert well-appearing Orientation/consciousness: patient oriented x3 Resp Effort & Inspection: normal respiratory effort Cardio Other: Normal peripheral perfusion GI Other: Soft nontender no guarding no distention General: Yes no CVA tenderness Back/Spine/Pelvis Back: no CVA tenderness Skin Other: Warm dry no rash Neuro General: patient oriented x3, gait normal, no focal motor deficits and CN's II-XI intact bilaterally Psych Other: Cooperative Course Reevaluation(s) Reevaluation #1: This is a RME preformed in triage by Deepti Beard PA-C. Date:02/20/25, time 1106 pm. Patient presents with dysuria x 3 days, reports subjective fevers not checked with back pain. Prior UTI in September. Work UP: labs and UA, not septic, but has b/l CVA and suprapubic ttp, mexican speaking Will defer full ROS and PE to treating provider. Patient will continued to be monitored in the interim. Medical Decision Making Medical Decision Making [facility] Narrative: 30-year-old female presents with dysuria x3 days. Associated suprapubic discomfort, discolored urine and low back pain. Denies nausea vomiting fever. No chronic issues History: Per patient I have considered the following differential diagnoses: UTI, pyelonephritis, renal colic Plan: Screening labs including urinalysis obtained from triage, the patient has a urinary tract infection. She has no signs symptoms concerning for pyelonephritis or renal colic at this time. We will treat accordingly no indication for imaging I have independently reviewed the following tests: Labs: No leukocytosis, not anemic, no electrolyte abnormality, not , urine infected Differential Diagnosis Differential Diagnoses: The differential diagnosis associated with the presentation includes See medical decision-making Admission/Observation Consideration of admission/observation: Escalation of care including admission/observation considered Not applicable Lab Data [facility] Lab Attestation statement: I reviewed the patient's lab results. 02/20/25 23:18 02/20/25 23:18 Labs: Lab Results 02/20/25 02/20/25 02/20/25 Range/Units 23:18 23:26 23:27 WBC 9.7 (4.8-10.8) X10*3/uL RBC 4.26 (4.20-5.50) X10*6/uL Hgb 12.7 (12.0-16.0) g/dl Hct 37.1 (37.0-47.0) % MCV 87.1 (80.0-98.0) fL MCH 29.8 (27.0-33.0) pg MCHC 34.2 (31.0-35.0) g/dl RDW 13.4 (11.0-16.0) % Plt Count 271 (160-400) X10*3/uL MPV 10.0 (9.4-12.3) fL Immature Gran % (Auto) 0.3 (0.0-0.4) % Neut % (Auto) 54.5 (45-73) % Lymph % (Auto) 35.6 (20-40) % [place] % (Auto) 5.8 (2-11) % Eos % (Auto) 3.2 (0-4) % Baso % (Auto) 0.6 (0-2) % Lymph # (Auto) 3.5 (1.2-4.9) X10*3/uL [place] # (Auto) 0.6 (0.1-1.2) X10*3/uL Eos # (Auto) 0.3 (0.0-0.4) X10*3/uL Baso # (Auto) 0.1 (0.0-0.2) X10*3/uL Abs Immat Gran (auto) 0.03 (0.00-0.03) X10*3/uL Absolute Neuts (auto) 5.3 (2.0-8.3) x10*3/uL Absolute Nucleated RBC 0.000 (0.0-0.012) X10*3/uL Nucleated RBC % (auto) 0.0 (0.0-0.2) /100WBC Sodium 141 (135-145) mmol/L Potassium 3.9 (3.3-5.1) mmol/L Chloride 107 (96-108) mmol/L Carbon Dioxide 26 (22-29) mmol/L Anion Gap 12 (12-20) BUN 14 (9-16) mg/dL Creatinine 0.66 (0.5-1.4) mg/dL Estim Creat Clear Calc 119.1 Estimated GFR > 60 Random Glucose 102 (60-115) mg/dL Calcium 9.8 D (8.4-10.2) mg/dL Total Bilirubin 0.3 (0.0-1.0) mg/dL AST 217 H (5-31) U/L ALT 376 H (0-31) U/L Alkaline Phosphatase 119 H (39-117) U/L Total Protein 8.2 H (6.5-8.0) g/dL Albumin 4.8 (3.5-5.0) g/dL Urine Color [place] Urine Appearance Hazy Urine pH 5.0 (5.0-9.0) Ur Specific [employer] 1.025 (1.005-1.025) Urine Protein 300 (3+) H (Neg-Trace) mg/dL Urine Glucose (UA) 250 H (Negative) mg/dL Urine Ketones 15 (Negative) mg/dL Urine Blood Large (3+) H (Negative) Urine Nitrite Positive H (Negative) Ur Leukocyte Esterase Large (3+) H (Negative) Urine RBC >20 H (0-2) /HPF Urine WBC >50 H (0-5) /HPF Ur Squamous Epith Cells 3-5 (0-2) /HPF Urine Bacteria Trace (None Seen) Hyaline Casts 0-2 (0-2) /LPF Urine Test NEGATIVE (NEGATIVE) Medications Administered Discontinued Medications Generic Name Dose Route Start Last Admin Trade Name Freq PRN Reason Stop Dose Admin Cephalexin HCl 500 mg 02/21/25 03:45 02/21/25 03:50 Cephalexin 500 Mg Capsule PO 02/21/25 03:46 500 mg ONCE ONE Administration Phenazopyridine HCl 200 mg 02/21/25 03:45 02/21/25 03:50 Phenazopyridine Hcl 200 Mg Tablet PO 02/21/25 03:46 200 mg ONCE ONE Administration Discharge Plan Discharge Clinical Impression: Urinary tract infection Patient Disposition: Home, Self-Care Instructions: Urinary Tract Infection in Women (ED) Additional Instructions: You were found to have a urinary tract infection. See home care instructions. Take the cephalexin as directed this is an antibiotic, make sure to complete the entire course of antibiotics. Use the Pyridium as needed for bladder pain, this medication will cause your urine to become bright orange, it will resolve. Drink plenty of fluids. Follow up with your primary care provider as needed. Prescriptions: New cephalexin 500 mg capsule 500 mg PO Q12H Qty: 13 0RF phenazopyridine [Pyridium] 200 mg tablet 200 mg PO TID PRN (Reason: pain) Qty: 10 0RF No Action doxycycline hyclate 100 mg capsule 100 mg PO BID 10 Days Qty: 20 0RF metronidazole 500 mg tablet 500 mg PO BID 7 Days Qty: 14 0RF valacyclovir [Valtrex] 1 gram tablet 1,000 mg PO BID 10 Days Qty: 20 0RF Interventions: ED Discharge Assessment Last Done: 02/21/25 04:11 Discharge Date/Time: 02/21/25 04:12 Print Language: Amharic
[2025-02-20 23:09] VITALS: BP 133/76; PULSE 79; RESP 16; TEMP 36.3; O2SAT 98; BMI 33.7
[2025-02-20 23:21] LABS: MANUAL DIFF FLAG NO
[2025-02-20 23:23] LABS: Hematocrit 37.1 % (37.0-47.0); Hemoglobin 12.7 g/dl (12.0-16.0); Imm Gran Abs Auto 0.03 X10*3/uL (0.00-0.03); Imm Gran Pct Auto 0.3 % (0.0-0.4); Lymphocytes Absolute Auto 3.5 X10*3/uL (1.2-4.9); Mean Corpuscular HGB Conc 34.2 g/dl (31.0-35.0); Mean Corpuscular Hemoglobin 29.8 pg (27.0-33.0); Mean Corpuscular Volume 87.1 fL (80.0-98.0); NRBC Abs Auto 0.000 X10*3/uL (0.0-0.012); NRBC Pct Auto 0.0 /100WBC (0.0-0.2); Platelet Count 271 X10*3/uL (160-400); Red Blood Count 4.26 X10*6/uL (4.20-5.50); White Blood Count 9.7 X10*3/uL (4.8-10.8)
[2025-02-20 23:39] LABS: Appearance Urine Hazy; Glucose Urine UA 250 mg/dL (Negative); PH 5.0 (5.0-9.0); Specific Gravity - Urine 1.025 (1.005-1.025); UMIC TRIGGER UACC YES
[2025-02-20 23:40] LABS: UPreg QC Valid YES
[2025-02-20 23:41] LABS: Alanine Aminotransferase 376 U/L (0-31); Albumin Level 4.8 g/dL (3.5-5.0); Alkaline Phosphatase 119 U/L (39-117); Anion Gap 12 (12-20); Aspartate Amino Transferase 217 U/L (5-31); Blood Urea Nitrogen 14 mg/dL (9-16); Calcium 9.8 mg/dL (8.4-10.2); Carbon Dioxide 26 mmol/L (22-29); Chloride 107 mmol/L (96-108); Creatinine Clr Calc Pharmacy 119.1; Estimated Glomerular Filt Rate > 60; Potassium 3.9 mmol/L (3.3-5.1); Sodium 141 mmol/L (135-145); Total Protein 8.2 g/dL (6.5-8.0)
[2025-02-20 23:47] LABS: UACC Culture Trigger YES
[2025-02-21 03:12] VITALS: BP 129/59; PULSE 81; RESP 16; TEMP 36.6; O2SAT 93
--- NOTE | 2025-02-21 03:20 | PC.NURSE ---
pt in room with spouse, in 8 pain, states it is hard to sit down, pain radiating to back.
[2025-02-21 04:08] VITALS: BP 129/59; PULSE 81; RESP 16; TEMP 36.6; O2SAT 93
--- NOTE | 2025-02-21 04:08 | PC.NURSE ---
pt medicated per MAR.
[2025-02-21 04:11] VITALS: BP 129/59; PULSE 81; RESP 16; TEMP 36.6; O2SAT 93
== END 2025-02-21 04:12 | disposition home or self-care (01) ==
PROVIDERS: Physician Assistant Medical; Emergency Provider Emergency Medicine; PCP Dentist General Practice
DX: N39.0 Urinary tract infection, site not specified (principal); M54.50 Low back pain, unspecified; R30.0 Dysuria; R11.2 Nausea with vomiting, unspecified; R50.9 Fever, unspecified
CPT/HCPCS: 36415; 80053; 81001; 81025; 85025; 87086; 87088; 87186; 99283; 99284